=== PATIENT | female | born 1980 | race Two or more races ===

== ENCOUNTER 2017-06-08 10:38 | Emergency (ER) | payer MEDICARE, MEDICAID ==
[~2017-06-08] VITALS: Ht 162.6 cm; Wt 100.0 kg
[2017-06-08] MEDS ORDERED: HYDROcodone/APAP 5/325 TABLET PO ONE (11:00)
[2017-06-08] MEDS ORDERED: HYDROcodone/APAP 5/325 TABLET ONE ×2 (11:04)
[2017-06-08 11:38] VITALS: BP 104/68
[2017-06-08] MEDS ORDERED: DICY20TA3 PO (11:45)
[2017-06-08] MEDS ORDERED: LINA290C PO (11:45)
[2017-06-08] MEDS ORDERED: TOPI25CA5 PO (11:45)
[2017-06-08] MEDS ORDERED: COLC0.6T37 PO (11:45)
[2017-06-08] MEDS ORDERED: OMEP40CA6 PO (11:45)
== END 2017-06-08 11:53 | disposition home or self-care (01) ==
LOC: ED 11:47
DX: S39.012A Strain of muscle, fascia and tendon of lower back, initial encounter (principal); S83.92XA Sprain of unspecified site of left knee, initial encounter; S83.91XA Sprain of unspecified site of right knee, initial encounter; W01.0XXA Fall on same level from slipping, tripping and stumbling without subsequent striking against object, initial encounter; Y93.89 Activity, other specified; Y92.59 Other trade areas as the place of occurrence of the external cause; Y99.9 Unspecified external cause status
CPT/HCPCS: 72110; 99284